=== PATIENT | male | born 1990 | race Caucasian/White ===

== ENCOUNTER 2023-12-29 09:23 | Emergency (ER) | payer SELFPAY ==
[~2023-12-29] VITALS: Ht 165.1 cm; Wt 90.7 kg
[2023-12-29 09:31] VITALS: O2SAT 99
[2023-12-29 10:07] LABS: BASOPHILS % 0.5 % (0.0-2.0); EOSINOPHILS % 0.8 % (0.0-5.0); HEMATOCRIT. 43.8 % (42.0-52.0); HEMOGLOBIN. 14.7 g/dL (14.0-18.0); MEAN CORPUSCULAR HEMOGLOBIN 29.8 pg (28.0-32.0); MEAN CORPUSCULAR HGB CONC 33.5 g/dL (31.0-37.0); MEAN CORPUSCULAR VOLUME 88.9 fL (80.0-94.0); MEAN PLATELET VOLUME 8.3 fl (7.4-10.4); MONOCYTES % 4.6 % (2.0-8.0); NEUTROPHILS % 69.1 % (40.0-76.0); PLATELET 286 x1000/uL (130-400); RED BLOOD CELL COUNT 4.92 mill/uL (4.7-6.1); RED CELL DISTRIBUTION WIDTH 12.8 % (11.6-14.6); WHITE BLOOD COUNT 7.4 x1000/uL (4.5-11.0)
[2023-12-29 10:29] LABS: CHLORIDE 104 mEq/L (98-107); POTASSIUM 3.9 mEq/L (3.5-5.1); SODIUM 137 mEq/L (136-145)
[2023-12-29 10:30] LABS: CARBON DIOXIDE 25 mEq/L (21-32)
[2023-12-29 10:31] LABS: CALCIUM 9.5 mg/dL (8.7-10.4)
[2023-12-29 10:35] LABS: GLUCOSE 100 mg/dL (70-105)
[2023-12-29 10:36] LABS: UREA NITROGEN BLOOD 10 mg/dL (9-23)
[2023-12-29 10:43] LABS: TROPONIN I HIGH SENSITIVITY < 4 ng/L (3.0-53)
[2023-12-29] MEDS ORDERED: IBUP-2030 MT (10:59)
[2023-12-29 11:11] VITALS: BP 165/88; PULSE 64; RESP 14; TEMP 98.4
== END 2023-12-29 11:23 | disposition home or self-care (01) ==
LOC: ER 09:44
DX: R20.0 Anesthesia of skin (principal); R07.89 Other chest pain
CPT/HCPCS: 36415; 71045; 80048; 84484; 85025; 93005; 99285